=== PATIENT | female | born 2000 | race American Indian/Alaskan Native ===

== ENCOUNTER 2019-01-17 01:33 | Emergency (ER) | payer SELFPAY ==
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
[2019-01-17 07:37] VITALS: BP 121/70
== END 2019-01-17 07:36 | disposition home or self-care (01) ==
LOC: ED 01:33
DX: M54.6 Pain in thoracic spine (principal)
CPT/HCPCS: 72070; 72100; 99283

== ENCOUNTER 2019-10-07 23:39 | Emergency (ER) | payer SELFPAY ==
--- NOTE | 2019-10-08 00:21 | Emergency Department Report ---
Chief Complaint: Abdominal Pain Stated Complaint: LOW RT ABD PAIN - HPI History of Present Illness: The pt is a 19 y/o F p/w a cc of AP. The pt states she has had a constant pain in the RLQ x 2-3 weeks. Pt states Naprosyn helps occas. Pt denies n/v/d. Pt denies fever, dysuria, hematuria or vag d/c. Pt states her LMP started yd and was late - Exam Vital Signs: Vital Signs 10/07/19 23:43 Temperature 98.7 F Pulse Rate 99 H Respiratory 18 Rate Blood Pressure 112/73 O2 Sat by Pulse 100 Oximetry MSE screening note: Focused history and physical exam performed. Due to findings the following was ordered: cbc, cmp, shcg, u/a ED Disposition for MSE Condition: Stable Instructions: Abdominal Pain (ED)
[2019-10-08 00:55] LABS: Basophils % (Auto) 0.4 % (0.0-1.8); Eosinophils # (Auto) 0.1 K/mm3 (0.0-0.4); Hematocrit 37.4 % (30.3-42.9); Hemoglobin 12.4 gm/dl (10.1-14.3); Lymphocytes # (Auto) 1.9 K/mm3 (1.2-5.4); Lymphocytes % (Auto) 22.6 % (13.4-35.0); Mean Corpuscular HGB Conc 33 % (30-34); Mean Corpuscular Volume 89 fl (79-97); Monocytes # (Auto) 0.8 K/mm3 (0.0-0.8); Monocytes % (Auto) 8.9 % (0.0-7.3); Platelet Count 219 K/mm3 (140-440); Red Blood Count 4.21 M/mm3 (3.65-5.03); Red Cell Distribution Width 13.3 % (13.2-15.2)
[2019-10-08 01:19] LABS: Alanine Aminotransferase 11 units/L (7-56); Albumin 4.1 g/dL (3.9-5); BUN/Creatinine Ratio 13; Blood Urea Nitrogen 10 mg/dL (7-17); Calcium 9.2 mg/dL (8.4-10.2); Hemolysis Index 5
[2019-10-08 01:51] LABS: Bacteria,Urine 1+ /HPF (Negative); Bilirubin,Urine NEG (Negative); Blood,Urine MOD (Negative); Color,Urine Yellow (Yellow); Mucus,Urine 3+ /HPF
[2019-10-08] MEDS ORDERED: ONDANSETRON 4 MG/2 ML INJ IV ONE (02:23)
[2019-10-08] MEDS ORDERED: KETOROLAC 30 MG/1 ML INJ IV ONE (02:23)
--- NOTE | 2019-10-08 03:30 | Cat Scan Report ---
CT ABDOMEN AND PELVIS WITH CONTRAST INDICATION: RLQ Abdominal pain. COMPARISON: No relevant prior imaging study available. TECHNIQUE: Axial, coronal and sagittal CT imaging of the abdomen and pelvis was performed after inje ction of 100 cc Omnipaque [address] scans at this location are performed using CT dose re duction for ALARA by means of automated exposure control. FINDINGS: LOWER CHEST: No significant abnormality. LIVER: No significant abnormality. BILIARY: No significant abnormality. PANCREAS: No significant abnormality. SPLEEN: No significant abnormality. ADRENALS: No significant abnormality. KIDNEYS AND URETERS: No significant abnormality. GI TRACT: No significant abnormality of the stomach, small bowel or colon. Unremarkable appendix. PERITONEUM: No free fluid. No free air. There is a simple appearing fluid collection located posterio rly and inferiorly along the pelvis measuring 5.5 x 3.2 cm on image 135 of series 2. A smaller simple appearing fluid collection located at the same level to the left of midline likely communicates with the larger collection and measures 3.5 x 2.0 cm. No gas is seen within these collections. LYMPH NODES: No significant adenopathy. VASCULATURE: No significant abnormality. URINARY BLADDER: No significant abnormality. REPRODUCTIVE ORGANS: No significant abnormality. ADDITIONAL FINDINGS: None. SKELETAL SYSTEM: No significant abnormality. IMPRESSION: Simple appearing pelvic fluid collections as above are of uncertain significance. Sequela of ovarian cyst rupture is a consideration. Please correlate with the clinical findings. Signer Name: Albert Penny MD Signed: 10/08/2019 3:25 AM Workstation Name: [email or web address]
--- NOTE | 2019-10-08 03:51 | Emergency Department Report ---
ED Abdominal Pain HPI - General Chief Complaint: Abdominal Pain Stated Complaint: LOW RT ABD PAIN Source: patient Mode of arrival: Ambulatory Limitations: No Limitations - History of Present Illness Initial Comments: Patient is a nulliparous 19-year-old -[place] female with no past medical history who presented to the ED with acute onset persistent worsening right lower quadrant pain for the last 3 weeks worse in the last 4 days. Patient denies vaginal discharge, dysuria, urinary frequency and urgency, fever, chills, nausea, vomiting, diarrhea, low back pain, dizziness, syncope or traumatic injury and he was lifting. Patient states that the pain got worse after she completed her menstrual cycle 2 days ago. MD Complaint: abdominal pain -: Gradual, week(s) (3) Location: RLQ Radiation: none Migration to: no migration Severity: moderate Severity scale (0 -10): 6 Quality: cramping, sharp Consistency: constant Improves With: nothing Worsens With: nothing Associated Symptoms: denies other symptoms. denies: nausea, vomiting, diarrhea, fever, chills, hematochezia, melena, hematuria, anorexia, syncope - Related Data LMP Date: 10/04/19 Previous Rx's Medication Instructions Recorded Last Taken Type Naproxen 500 mg PO Q12H PRN #20 tablet 10/08/19 Unknown Rx traMADoL [Ultram] 50 mg PO Q6HR PRN #12 tablet 10/08/19 Unknown Rx Allergies Allergy/AdvReac Type Severity Reaction Status Date / Time No Known Allergies Allergy Verified 01/17/19 01:39 ED Review of Systems ROS: Stated complaint: LOW RT ABD PAIN Other details as noted in HPI Constitutional: denies: chills, fever Eyes: denies: eye pain, eye discharge, vision change ENT: denies: ear pain, throat pain Respiratory: denies: cough, shortness of breath, wheezing Cardiovascular: denies: chest pain, palpitations Endocrine: no symptoms reported Gastrointestinal: abdominal pain. denies: nausea, vomiting, diarrhea Genitourinary: denies: urgency, dysuria, discharge Musculoskeletal: denies: back pain, joint swelling, arthralgia Skin: denies: rash, lesions Neurological: denies: headache, weakness, paresthesias Psychiatric: denies: anxiety, depression Hematological/Lymphatic: denies: easy bleeding, easy bruising ED Past Medical Hx - Past Medical History Previous Medical History?: No - Surgical History Past Surgical History?: Yes Additional Surgical History: right leg - Social History Smoking Status: Current Every Day Smoker Substance Use Type: Marijuana - Medications Home Medications: Home Medications Medication Instructions Recorded Confirmed Last Taken Type Naproxen 500 mg PO Q12H PRN #20 tablet 10/08/19 Unknown Rx traMADoL [Ultram] 50 mg PO Q6HR PRN #12 tablet 10/08/19 Unknown Rx ED Physical Exam - General Limitations: No Limitations General appearance: alert, in no apparent distress - Head Head exam: Present: atraumatic, normocephalic, normal inspection - Eye Eye exam: Present: normal appearance, PERRL, EOMI - ENT ENT exam: Present: normal exam, normal orophraynx, mucous membranes moist, TM's normal bilaterally, normal external ear exam - Neck Neck exam: Present: normal inspection, full ROM - Respiratory Respiratory exam: Present: normal lung sounds bilaterally. Absent: respiratory distress, wheezes, rhonchi, chest wall tenderness, decreased breath sounds, pro longed expiratory - Cardiovascular Cardiovascular Exam: Present: regular rate, normal rhythm, normal heart sounds. Absent: systolic murmur, diastolic murmur, rubs, gallop - GI/Abdominal GI/Abdominal exam: Present: soft, tenderness (Mildly tender RLQ area), normal bowel sounds. Absent: guarding, rebound, hyperactive bowel sounds, organomegaly, mass - Bi-manual exam: Present: other (Deferred pelvic exam due to patient request) - Extremities Exam Extremities exam: Present: normal inspection, full ROM, normal capillary refill - Back Exam Back exam: Present: normal inspection, full ROM. Absent: tenderness, muscle spasm, paraspinal tenderness - Neurological Exam Neurological exam: Present: alert, oriented X3, CN II-XII intact, normal gait, reflexes normal - Psychiatric Psychiatric exam: Present: normal affect, normal mood - Skin Skin exam: Present: warm, dry, intact, normal color. Absent: rash ED Course Vital Signs 10/07/19 10/08/19 23:43 03:12 Temperature 98.7 F Pulse Rate 99 H Respiratory 18 20 Rate Blood Pressure 112/73 O2 Sat by Pulse 100 Oximetry ED Medical Decision Making - Lab Data Result diagrams: 10/08/19 00:29 10/08/19 00:29 - Radiology Data Radiology results: report reviewed, image reviewed Findings [facility] [address] [place] [address] Cat Scan Report Signed Patient: LEORA MALCOLM MR#: [id number] : 2000 Acct:[id number] Age/Sex: 19 / F ADM Date: 10/07/19 Loc: ED Attending Dr: Ordering Physician: BARON PYLE Date of Service: 10/08/19 Procedure(s): CT abdomen pelvis w con Accession Number(s): [id number] cc: BARON PYLE CT ABDOMEN AND PELVIS WITH CONTRAST INDICATION: RLQ Abdominal pain. COMPARISON: No relevant prior imaging study available. TECHNIQUE: Axial, coronal and sagittal CT imaging of the abdomen and pelvis was performed after injection of 100 cc Omnipaque [address] scans at this location are performed using CT dose reduction for ALARA by means of automated exposure control. FINDINGS: LOWER CHEST: No significant abnormality. LIVER: No significant abnormality. BILIARY: No significant abnormality. PANCREAS: No significant abnormality. SPLEEN: No significant abnormality. ADRENALS: No significant abnormality. KIDNEYS AND URETERS: No significant abnormality. GI TRACT: No significant abnormality of the stomach, small bowel or colon. Unremarkable appendix. PERITONEUM: No free fluid. No free air. There is a simple appearing fluid collection located posteriorly and inferiorly along the pelvis measuring 5.5 x 3.2 cm on image 135 of series 2. A sma ller simple appearing fluid collection located at the same level to the left of midline likely communicates with the larger collection and measures 3.5 x 2.0 cm. No gas is seen within these collections. LYMPH NODES: No significant adenopathy. VASCULATURE: No significant abnormality. URINARY BLADDER: No significant abnormality. REPRODUCTIVE ORGANS: No significant abnormality. ADDITIONAL FINDINGS: None. SKELETAL SYSTEM: No significant abnormality. IMPRESSION: Simple appearing pelvic fluid collections as above are of uncertain significance. Sequela of ovarian cyst rupture is a consideration. Please correlate with the clinical findings. Signer Name: Albert Penny MD Signed: 10/08/2019 3:25 AM Workstation Name: [id number] Transcribed By: [facility] Dictated By: Albert Penny MD Electronically Authenticated By: Albert Penny MD Signed Date/Time: 10/08/19324 DD/ 9 TD/TT: - Medical Decision Making This is a 19-year-old nulliparous female who presented to the ED with persistent right lower quadrant abdominal pain for 3 weeks. In the ED, patient is alert and oriented 3 and is not in distress. Lab test results were reviewed and are all nonactionable. Abdomen pelvis CT scan with contrast shows simple appearing pelvic fluid collections as above are of uncertain significance. Sequela of ovarian cyst rupture is a consideration. Please correlate with the clinical findings. Patient was treated for pain in the ED and on reevaluation, patient's pain is well controlled with medications. Patient's symptoms are likely due to a ruptured ovarian cyst as sculpture by the abdomen and pelvis CT scan with contrast report. Patient was discharged home on pain medications and advised to follow-up with her [facility] physician in 5-7 days for reevaluation or return to the ED immediately if symptoms get worse. - Differential Diagnosis Appendicitis; Ovarian cyst; Tubovarian abscess; PID; UTI Critical care attestation.: If time is entered above; I have spent that time in minutes in the direct care of this critically ill patient, excluding procedure time. ED Disposition Clinical Impression: Acute abdominal pain in right lower quadrant, Rupture of cyst of right ovary Disposition: DC-01 TO HOME OR SELFCARE Is pt being admited?: No Does the pt Need Aspirin: No Condition: Stable Instructions: Abdominal Pain (ED), Ovarian Cyst (ED) Additional Instructions: The symptoms that you have likely due to a ruptured ovarian cyst on the right ovary based on the report of the abdomen and pelvis CT scan with contrast. Therefore take medications for pain as needed with food, drink plenty of fluids and follow-up with your [facility] physician in 5-7 days for reevaluation or return to the ED immediately if symptoms get worse. Prescriptions: Naproxen 500 mg PO Q12H PRN #20 tablet PRN Reason: Pain , Severe (7-10) traMADoL [Ultram] 50 mg PO Q6HR PRN #12 tablet PRN Reason: Pain Referrals: AURA WAITE MD [Staff Physician] - 3-5 Days Time of Disposition: 03:54 Print Language: SAMI
[2019-10-08 04:46] VITALS: BP 118/66
== END 2019-10-08 04:57 | disposition home or self-care (01) ==
LOC: ED 23:39
DX: N83.11 Corpus luteum cyst of right ovary (principal); F17.200 Nicotine dependence, unspecified, uncomplicated
CPT/HCPCS: 36415; 74177; 80053; 81001; 84703; 85025; 96374; 96375; 99284; J1885; J2405; Q9967